=== PATIENT | male | born 1980 | race Caucasian/White ===

== ENCOUNTER 2022-10-12 02:35 | Emergency (ER) | payer OTHER, SELFPAY ==
[2022-10-12 02:41] VITALS: BP 173/102; PULSE 135; RESP 18; TEMP 36.9; O2SAT 99; BMI 25.8
--- NOTE | 2022-10-12 04:59 | ED_ITS ---
HPI - Psych General Chief Complaint: Psychiatric Symptoms Stated Complaint: Crisis Time Seen by Provider: 10/12/22 04:45 Source: patient Mode of arrival: ambulatory Limitations: no limitations History of Present Illness HPI Narrative: Patient comes emergency room complaining of severe anxiety. Patient states he has been diagnosed with bipolar disorder. Patient states that he came because he has been very anxious lately. He has a quadriplegic son, patient is a single father. Patient states that his new girlfriend made him come to talk to somebody about his anxiety. Patient states that a few days ago he made ?a stupid comment same-day was going to kill himself. Patient states that he did this out of pure anger, patient states that he has no history of suicidal or homicidal ideation and he is not suicidal or homicidal. Related Data Allergies Allergy/AdvReac Type Severity Reaction Status Date / Time coconut AdvReac Diarrhea Verified 10/12/22 02:48 Review of Systems Review of Systems: Constitutional : No Weight loss, No Fever, No Chills, No Night Sweats, No Fatigue, No Malaise ENT/Mouth : No Hearing loss, No Ear Pain, No Nasal Congestion, No Sinus Pain, No Hoarseness, No sore throat, No Rhinorrhea, No Swallowing Difficulty Eyes: No Eye Pain, No Swelling, No Redness, No Foreign Body, No Discharge, No Vision Changes Cardiovascular : No Chest Pain, No SOB, No Dyspnea on Exertion, No Orthopnea, No Edema, No Palpitations Respiratory : No Cough, No Sputum, No Wheezing, No Smoke Exposure, No Dyspnea Gastrointestinal : No Nausea, No Vomiting, No Diarrhea, No Constipation, No abdominal Pain, No Hematochezia, No Melena Genitourinary : no irregular bleeding, No Dysuria, No Urinary Frequency, No Hematuria, No Urinary Incontinence, No Urgency, No Flank Pain, No Urinary Flow Changes, No Hesitancy Musculoskeletal : No joint pain, No Myalgias, No Joint Swelling Skin : No Skin Lesions, No rash Neuro : No Weakness, No Numbness, No Paresthesias, No Loss of Consciousness, No Dizziness, No Headache Psych : Complaining of severe anxiety, No Depression, No SI/HI/AH/VH, No Social Issues, Heme/Lymph: No Bruising, No Bleeding,No Lymphadenopathy Endocrine : No Polyuria, No Polydipsia, No Temperature Intolerance PMFSH Past Medical History Medical History (Updated 10/12/22 @ 05:03 by Leigha Valentin MD) Anxiety and depression Bipolar disorder Social History Social History Advance Directives: No Advance Directives Information Provided: Yes Physical Exam Vital Signs: Vital Signs: Last Vital Signs Temp 98.4 F 10/12/22 02:41 Pulse 135 H 10/12/22 02:41 Resp 18 10/12/22 02:41 BP 173/102 H 10/12/22 02:41 Pulse Ox 99 10/12/22 02:41 BMI result Body Mass Index 25.8 Const: Other: Appearance: Alert. Oriented X3. No acute distress. Eyes: Pupils equal, round and reactive to light. ENT: Pharynx normal. Neck: Normal inspection. Neck supple. No lymph nodes noted. No crepitus CVS: Normal heart rate and rhythm. Pulses normal. Normal S1 and S2 Respiratory: No respiratory distress. Breath sounds normal. No Wheezing. No rales Abdomen: Soft and nontender. No rigidity. No distention. Skin: Skin warm and dry. Normal skin color. Normal skin turgor. Extremities: No lower extremity edema. No Lacerations. No Rash Neuro: Oriented X 3. No motor deficit. No sensory deficit. Moving all extremities. No slurred speech. CN 2 through 12 grossly intact Psych: calm, cooperative, normal affect Medications Administered Discontinued Medications Generic Name Dose Route Start Last Admin Trade Name Patricioq PRN Reason Stop Dose Admin Lorazepam 2 mg 10/12/22 03:43 10/12/22 03:49 Lorazepam 1 Mg Tablet PO 10/12/22 03:44 2 mg ONCE ONE Administration Medical Decision Making Medical Decision Making MDM Narrative: -patient states that the only reason that he came to the emergency room was because his girlfriend asked him to come. Patient was thinking that it would be a quick process he will get some information and be sent home. Patient states that he cannot stay too long here, he is concerned that his quadriplegic son is home and will need his help shortly. Patient is not suicidal or homicidal. Patient requesting a pressure with information so he can make his own phone calls -patient is not suicidal or homicidal, no need to [place]. -patient was given information to make his own phone calls with [facility]. -patient declined to give urine sample or lab work. Patient only wants information which was provided to Differential Diagnosis Differential Diagnoses: The differential diagnosis associated with the presentation includes (Anxiety, depression, bipolar disorder) Discharge Plan Discharge Clinical Impression: Anxiety and depression Patient Disposition: Home, Self-Care Instructions: Anxiety (ED), Depression (ED) Additional Instructions: Please follow-up with your primary care physician tomorrow. If you have any worsening or new symptoms, please return to the emergency room or call 911
== END 2022-10-12 05:41 | disposition home or self-care (01) ==
PROVIDERS: Emergency Provider Emergency Medicine
DX: F41.9 Anxiety disorder, unspecified (principal); F31.9 Bipolar disorder, unspecified
CPT/HCPCS: 99283